=== PATIENT | female | born 1965 | race Caucasian/White ===

== ENCOUNTER → 2019-10-06 10:34 | Outpatient (CLI) | payer OTHER, SELFPAY ==
--- NOTE | ~2019-10-06 | MR_ITS ---
EXAMINATION: MR elbow RT wo con DATE: 10/06/2019 11:27 INDICATION: Right elbow pain TECHNIQUE: Magnetic resonance imaging (MRI) of the right elbow was performed without intravenous cont rast. Sequences included coronal, axial, and sagittal PD-weighted FS FSE and coronal, axial, and sagi ttal PD-weighted FSE. COMPARISON: Right elbow radiographs dated 07/16/2019 FINDINGS: Osseous/other: Normal alignment. Normal marrow signal with no marrow edema, fracture, osteochondral lesion or abnor mal marrow replacing process. Tendons: Triceps, biceps brachii and brachialis tendons are normal. Common flexor tendon wad is normal. Mild tendinopathy and partial tear involving a relatively small portion of the lateral epicondylar inserti on of the common extensor tendon wad. Ligaments: The medial and lateral collateral ligament complexes are normal. Cubital tunnel: Cubital tunnel is unremarkable with normal signal and caliber of the ulnar nerve. Fluid: Physiologic amount of fluid the elbow joint. IMPRESSION: 1. Mild tendinopathy and small partial-thickness tear at the lateral epicondylar origin of the common extensor tendon wad. Reviewed, dictated and finalized at location A. IMPRESSION: 1. Mild tendinopathy and small partial-thickness tear at the lateral epicondyla r origin of the common extensor tendon wad.
== END ==
PROVIDERS: Visit Provider Orthopaedic Surgery
DX: M77.11 Lateral epicondylitis, right elbow (principal)
CPT/HCPCS: 73221

== ENCOUNTER 2019-10-09 00:19 | Outpatient (CLI) | payer OTHER, SELFPAY ==
[2019-10-09 20:58] LABS: SARS-CoV-2 RNA PCR Negative
== END 2019-10-09 00:20 | disposition home or self-care (01) ==
LOC: ANHCOVIDDT 00:19
PROVIDERS: PCP Internal Medicine; Visit Provider Orthopaedic Surgery
DX: Z01.812 Encounter for preprocedural laboratory examination (principal); Z11.59 Encounter for screening for other viral diseases
CPT/HCPCS: 87635; C9803; U0003

== ENCOUNTER 2019-10-09 09:49 | Outpatient (CLI) | payer OTHER, SELFPAY ==
--- NOTE | 2019-10-09 10:05 | ECG_ITS ---
Measurements Intervals [place] Rate: 61 P: 49 UT: 148 QRS: 60 QRSD: 85 T: 12 QT: 422 QTc: 425 Interpretive Statements SINUS RHYTHM BORDERLINE ST-T WAVE ABNORMALITY- INFERIOR LEADS BORDERLINE ECG Electronically Signed On 10-09-2019 10:20:51 CDT by Papo Goldman D.O.
== END 2019-10-09 09:50 | disposition home or self-care (01) ==
LOC: ANHCARD 09:52
PROVIDERS: PCP Internal Medicine; Visit Provider Orthopaedic Surgery
DX: Z01.810 Encounter for preprocedural cardiovascular examination (principal); Z87.891 Personal history of nicotine dependence
CPT/HCPCS: 93005

== ENCOUNTER 2019-10-12 01:42 | Day surgery (SDC) | payer OTHER, SELFPAY ==
[2019-10-07 15:29] VITALS: BMI 23.2
[2019-10-12] VITALS (7 sets, daily range): BP systolic 107–145; BP diastolic 72–90; PULSE 63–91; RESP 14–18; TEMP 36.3–36.8; O2SAT 96–100
[2019-10-12] MEDS: LACTATED RINGERS 1,000 ML 30 ML IV CONT (07:25)
--- NOTE | 2019-10-12 07:45 | WPDANESEPPF ---
Anes - Initial Pre Proc Eval Procedure: Operation Date: 10/12/19 09:00 Proposed Procedures p Debridement Right Lateral Epicondyle - Neil Salamanca MD Date/Time: 10/12/19 07:45 Surgeon: Neil Salamanca MD Pre Op Diagnosis: right lateral epicondylitis Patient Data Age: 54 Gender: F Height: 4 ft 11 in Weight: 52.16 kg Allergies Allergy/AdvReac Type Severity Reaction Status Date / Time hydrocodone Allergy Unknown Nausea Verified 10/07/19 15:29 codeine AdvReac Unknown Nausea and Verified 10/07/19 15:29 Vomiting Home Medications Medication Instructions Recorded Confirmed Type albuterol sulfate 90 mcg/actuation 1 inhalation INHALATION Q4-6H PRN 02/23/19 10/07/19 Rx aerosol inhaler #18 gm budesonide-formoterol HFA 160 2 puff INHALATION Q12H #10.2 gm 02/27/19 10/07/19 Rx mcg-4.5 mcg/actuation aerosol inhaler escitalopram oxalate 20 mg PO HS 10/07/19 10/07/19 History Patient hx anesthesia problems: none Family hx anesthesia problems: none PMFSH Past Medical History Medical History Anxiety Breast cancer Cervical cancer COPD (chronic obstructive pulmonary disease) Depression Hyperplastic polyp of ascending colon Surgical History Surgical History History of hysterectomy History of knee surgery 2008- Dr. Salamanca Family History Family History Grandparent Family history of malignant neoplasm of breast Mother Family history of malignant neoplasm of breast in first degree relative Father Cancer Sibling Cancer Social History Social History Social History: quit smoking 7 years ago, 0.5 PPD x 30 years prior Smoking status: Former smoker Alcohol intake: current Additional living arrangements comments: Additional occupation/education comments: [employer] Anes - Eval Final PreProcedure Day of Procedure 10/12/19 07:45 Patient weight: normal Heart: regular rate and rhythm Lungs: decreased breath sounds Airway: Mallampati scale class II Neurological: alert and oriented Last oral intake: >/= 8 hours ASA classification: III Emergent: no Anesthetic plan: proceed Anesthesia type and monitoring: general LMA and standard monitoring Informed Consent: The patient's anesthetic plan and its attendant risks and benefits were discussed with the patient/family/POA. Questions were solicited and answers provided to the satisfaction of the patient/family/POA.
--- NOTE | 2019-10-12 08:52 | WPDHPUPDATE1 ---
History and Physical Update Update Date/Time: 10/12/19 08:52 History and Physical has been reviewed, including an updated exam of the patient. There are NO changes in the patient's condition. Risks, benefits, and alternatives have been discussed and questions answered. Patient agrees to proceed with procedure.
[2019-10-12] MEDS: ceFAZolin 2 GM/D5W 50 ML 2 GM/50 ML BAG IVPB (09:11)
[2019-10-12] MEDS: BUPIVACAINE/EPINEPHRINE 0.25% 10 ML VIAL 50 ML INFILTRATE (09:59)
--- NOTE | 2019-10-12 10:24 | PM.PROC ---
Procedure Note - Detailed Date of procedure: 10/12/19 Pre-op diagnosis: right lateral epicondylitis Post-op diagnosis: same Procedure performed: Debride right lateral epicondyle with partial epicondylectomy Description of procedure: patient was identified and proper site identified. She was taken to the operating room and transferred to the OR table placing her supine taking care to pad her torso and extremities. After general anesthetic induction and intubation, a nonsterile tourniquet was placed high on the right arm. Right upper extremity was prepped and draped in usual sterile fashion. Several cc of 0.25% Marcaine and epinephrine solution was injected into the subcutaneous tissue in the area of the lateral epicondyle the right elbow. The extremity was exsanguinated and tourniquet inflated remaining up until the end of the procedure. Longitudinal incision was made in line with the common extensor origin tendon. Subcutaneous tissue was sharply dissected down to the tendinous origin. Fascia was removed from over the tendon. There is quite a bit of hyperemia within the tendon. It was released off of the epicondyle and then divided longitudinally in line with the fibers. The degenerative material within was sharply debrided back to healthier tendon. Prominent portion of the epicondyle was removed with a rongeur. Wound was irrigated with sterile antibiotic solution. Tendon edges reapproximated with four 0 Monocryl suture deeper layers of the subcu reapproximated with four 0 Monocryl. Skin edges reapproximated with three 0 V lock and tissue adhesive. Sterile dressing was applied. Tourniquet was released. She was awakened, extubated and taken to recovery room in stable condition. There were no known intraoperative complications. Estimated blood loss was negligible. She received perioperative antibiotics Anesthesia: GLMA Surgeon: Neil Salamanca MD Assistant To The Dean: Viridiana Choudhary Drains: No Packing: No Pathology: none sent Complications: No immediate complications Condition: stable Disposition: PACU
== END 2019-10-12 12:10 | disposition home or self-care (01) ==
PROVIDERS: PCP Internal Medicine; Visit Provider Orthopaedic Surgery
PROC: (CPT 24358; principal; 2019-10-12 09:00)
DX: M77.11 Lateral epicondylitis, right elbow (principal); J44.9 Chronic obstructive pulmonary disease, unspecified; F41.8 Other specified anxiety disorders; Z85.41 Personal history of malignant neoplasm of cervix uteri; Z85.3 Personal history of malignant neoplasm of breast; Z87.891 Personal history of nicotine dependence
CPT/HCPCS: 24358; A4565; J0690; J1100; J2250; J2405; J2704; J3010; J7120

== ENCOUNTER 2019-12-03 14:44 | Outpatient (CLI) | payer OTHER, SELFPAY ==
--- NOTE | ~2019-12-03 | MR_ITS ---
EXAMINATION: MR shoulder RT wo con DATE: 12/03/2019 15:22 INDICATION: Right shoulder pain TECHNIQUE: Magnetic resonance imaging (MRI) of the right shoulder was performed without intravenous c ontrast. Sequences included axial PD-weighted FS FSE, coronal oblique PD-weighted FS FSE, coronal obl ique T2-weighted FS FSE, sagittal PD-weighted FS FSE, and sagittal T1-weighted SE. COMPARISON: Right shoulder radiographs dated 07/16/2019 FINDINGS: Coracoacromial arch: The acromion undersurface is curved in morphology (type II). The coracoacromial ligament is normal. M ild acromioclavicular osteoarthritis. Rotator cuff: Moderate supraspinatus and infraspinatus tendinopathy. There is a small full-thickness tear along the superior facet footplate of the greater tuberosity which measures 6 mm AP and 8 mm medial to lateral . Minimal subscapularis tendinopathy without discrete tear. The teres minor tendon is normal. The sma ll calcific density on the prior radiographs projecting near the expected location of the junction of the supraspinatus and teres minor tendons suspicious for calcific tendinitis is not definitively mariaelena ntified on the MR images. Normal rotator cuff muscle bulk and signal. Biceps tendon, glenoid labrum and glenohumeral cartilage: Long head of the biceps tendon is normal. Glenoid labrum is normal. Glenohumeral cartilage is normal. Fluid: There is increased fluid in the long head biceps tendon sheath consistent with bicipital tenosynoviti s. Small amount of fluid in the subacromial/subdeltoid bursa likely representing fluid from the gleno humeral joint space communicating through the full-thickness rotator cuff tear. No loose osteochondra l bodies. Bones: Normal marrow signal with no edema, fracture or pathologic marrow replacing process. Mild cystic arndt ge along the inferior aspect of the greater tuberosity. IMPRESSION: Moderate supraspinatus and infraspinatus tendinopathy with small full-thickness supraspinatus tendon tear. Reviewed, dictated and finalized at location A.
== END 2019-12-03 14:45 ==
PROVIDERS: Visit Provider Orthopaedic Surgery
DX: M25.511 Pain in right shoulder (principal); M75.81 Other shoulder lesions, right shoulder
CPT/HCPCS: 73221

== ENCOUNTER 2020-01-29 02:13 | Outpatient (CLI) | payer OTHER, SELFPAY ==
[2020-01-29 18:25] LABS: SARS-CoV-2 RNA PCR Negative
== END 2020-01-29 02:14 | disposition home or self-care (01) ==
LOC: ANHCOVIDDT 02:13
PROVIDERS: PCP Nurse Practitioner Family; Visit Provider Orthopaedic Surgery
DX: Z01.812 Encounter for preprocedural laboratory examination (principal); Z20.828 Contact with and (suspected) exposure to other viral communicable diseases
CPT/HCPCS: 87635; C9803; U0003

== ENCOUNTER 2020-02-01 01:41 | Day surgery (SDC) | payer OTHER, SELFPAY ==
[2020-01-21 18:10] VITALS: BMI 24.3
[2020-02-01] VITALS (11 sets, daily range): BP systolic 122–157; BP diastolic 66–99; PULSE 69–101; RESP 12–20; TEMP 36.1–36.3; O2SAT 94–100
[2020-02-01] MEDS: ACETAMINOPHEN 500 MG TABLET 1000 MG PO (06:40)
[2020-02-01] MEDS: LACTATED RINGERS 1,000 ML 30 ML IV CONT ×2 (06:45→09:51)
[2020-02-01] MEDS: KETOROLAC 15 MG/ML VIAL (*BKC) IV PUSH (06:48)
--- NOTE | 2020-02-01 07:18 | WPDHPUPDATE1 ---
History and Physical Update Update Date/Time: 02/01/20 07:18 History and Physical has been reviewed, including an updated exam of the patient. There are NO changes in the patient's condition. Risks, benefits, and alternatives have been discussed and questions answered. Patient agrees to proceed with procedure.
--- NOTE | 2020-02-01 07:22 | WPDANESEPPF ---
Anes - Initial Pre Proc Eval Procedure: Operation Date: 02/01/20 07:30 Proposed Procedures p Right Rotator Cuff Repair, Acromioplasty, Distal Clavicle Excision, Proceed As Indicated - Neil Salamanca MD Date/Time: 02/01/20 07:22 Surgeon: Neil Salamanca MD Pre Op Diagnosis: Right Rotator Cuff Tear AC Arthritis Patient Data Age: 54 Gender: F Height: 1.5 m Weight: 55.3 kg Last Vital Signs Temp 36.3 C L 02/01/20 06:38 Pulse 72 02/01/20 06:38 Resp 18 02/01/20 06:38 BP 138/91 H 02/01/20 06:38 Pulse Ox 99 02/01/20 06:38 Allergies Allergy/AdvReac Type Severity Reaction Status Date / Time codeine AdvReac Mild Nausea and Verified 01/23/20 09:19 Vomiting hydrocodone AdvReac Mild Nausea Verified 01/23/20 09:19 Home Medications Medication Instructions Recorded Confirmed Type albuterol sulfate 90 mcg/actuation 1 inhalation INHALATION Q4-6H PRN 02/23/19 01/21/20 Rx aerosol inhaler #18 gm budesonide-formoterol HFA 160 2 puff INHALATION Q12H #6 device 11/18/19 01/21/20 Rx mcg-4.5 mcg/actuation aerosol inhaler buspirone 7.5 mg PO BID 01/21/20 01/21/20 History venlafaxine 37.5 mg PO QPM 01/21/20 01/21/20 History Patient hx anesthesia problems: none Family hx anesthesia problems: none PMFSH Past Medical History Medical History (Updated 01/14/20 @ 14:13 by Neil Salamanca MD) Anxiety Arthritis of right acromioclavicular joint Breast cancer Cervical cancer COPD (chronic obstructive pulmonary disease) Depression Hyperplastic polyp of ascending colon Surgical History Surgical History History of hysterectomy History of knee surgery 2008- Dr. Salamanca Right lateral epicondylitis debridement September 2019 Family History Family History Grandparent Family history of malignant neoplasm of breast Mother Family history of malignant neoplasm of breast in first degree relative Father Cancer Sibling Cancer Social History Social History Social History: quit smoking 7 years ago, 0.5 PPD x 30 years prior Smoking packs per day: 1 Smoking cigarettes per day: 20.0 Years smoked: 20 Smoking pack-years: 20.00 Smoking status: Former smoker Tobacco type: cigarettes Additional smoking assessment comments: QUIT SMOKING 7 YEARS AGO Alcohol intake: current Drinks per week: 3 Living arrangements: with family Additional living arrangements comments: Additional occupation/education comments: [employer] care concerns: No Anes - Eval Final PreProcedure Day of Procedure 02/01/20 07:22 Patient weight: normal Heart: regular rate and rhythm Lungs: clear to auscultation and normal air movement Airway: Mallampati scale class II Neurological: alert and oriented Last oral intake: >/= 8 hours ASA classification: III Emergent: no Anesthetic plan: proceed Anesthesia type and monitoring: general ETT Informed Consent: The patient's anesthetic plan and its attendant risks and benefits were discussed with the patient/family/POA. Questions were solicited and answers provided to the satisfaction of the patient/family/POA.
[2020-02-01] MEDS: ceFAZolin 2 GM/D5W 50 ML 2 GM/50 ML BAG IVPB (07:36)
[2020-02-01] MEDS: BUPIVACAINE/EPINEPHRINE 0.25% 50 ML VIAL 20 ML INFILTRATE (08:13)
--- NOTE | 2020-02-01 09:02 | P.OP_ITS ---
Procedure Note - Detailed Date of procedure: 02/01/20 Pre-op diagnosis: Right Rotator Cuff Tear AC Arthritis Post-op diagnosis: same Procedure performed: open right rotator cuff repair with acromioplasty, and distal clavicle excision Description of procedure: Patient was identified and proper site identified. She was then taken to the operating room and transferred to the or table taking care to pad the torso and extremities. After general anesthetic induction and intubation, she was put in a semi beach chair position in the usual manner for a right shoulder procedure. her head was secured taking care to neither rotate nor extend the head and neck. The right upper extremity was prepped and draped free in usual sterile fashion. The subcutaneous tissue in the area of the incision was injected with 10 cc of 0.25% Marcaine and epinephrine solution. An oblique anterior incision was made extending from the AC joint distally in line with the fibers of the deltoid. Subcutaneous tissue was sharply dissected down to the deltoid fascia. The deltoid was dissected off the anterior portion of the acromion in the distal end of the clavicle. A 2 cm split was made at the junction between the anterior and middle thirds of the deltoid. Using the microsagittal saw the last 8 mm of clavicle removed. The saw was also used to perform the acromioplasty and then the undersurface of the acromion was rasped smooth. There was an abundance of thickened bursa which was debrided allowing for inspection of the rotator cuff. There was an erosive type tear at the anterior portion of the supraspinatus. The tendon edges were freshened up the tuberosity prepared for the repair. The tendon was able to be repaired in a [id number] fashion with 2. Ethibond suture and then also 2. Ethibond was used to repair to the greater tuberosity through bony tunnels giving a soria repair which was stable as the shoulder was taken through range of motion. This is able to be accomplished with her arm at her side. The wound was irrigated with s terile NaCl solution. The deltoid was repaired back to the acromion with 2. Ethibond suture passed through bone and the remainder of the deltoid repair carried out with 2. Vicryl. Subcutaneous tissue was reapproximated with 2. Strata fix and then tissue adhesive used for the skin. Sterile dressing was applied. There were no known intraoperative complications, and perioperative antibiotics were administered. Anesthesia: GEORGIEA Surgeon: Neil Salamanca MD Pressurised Container Filler: james Estimated blood loss (mL): 15 Drains: No Packing: No Pathology: none sent Complications: No immediate complications Condition: stable Disposition: PACU
[2020-02-01] MEDS: fentaNYL CITRATE INJ (*CRX) 100 MCG/2 ML VIAL 25 MCG IV PUSH ×4 (09:46→10:03)
[2020-02-01] MEDS: oxyCODONE HCL (*CRX) 5 MG TAB IR PO (10:35)
== END 2020-02-01 12:20 | disposition home or self-care (01) ==
PROVIDERS: PCP Nurse Practitioner Family; Visit Provider Orthopaedic Surgery
PROC: (CPT 23420; principal; 2020-02-01 07:30)
DX: M75.101 Unspecified rotator cuff tear or rupture of right shoulder, not specified as traumatic (principal); M19.011 Primary osteoarthritis, right shoulder; J44.9 Chronic obstructive pulmonary disease, unspecified; F41.8 Other specified anxiety disorders; Z85.41 Personal history of malignant neoplasm of cervix uteri; Z85.3 Personal history of malignant neoplasm of breast; Z87.891 Personal history of nicotine dependence
CPT/HCPCS: 23420; 23120; A4565; A9270; J0330; J0690; J1100; J1165; J1885; J2250; J2405; J2704; J2710; J3010; J7120